=== PATIENT | male | born 1975 | race Caucasian/White ===

== ENCOUNTER 2020-08-15 06:01 | Day surgery (SDC) | payer OTHER ==
[2020-08-15] VITALS (19 sets, daily range): BP systolic 130–152; BP diastolic 62–95
[~2020-08-15] VITALS: Ht 165.1 cm; Wt 89.8 kg
[2020-08-15] MEDS ORDERED: TRAZ-187 PO (06:46)
[2020-08-15] MEDS ORDERED: NAPR-1192 PO (06:46)
[2020-08-15] MEDS ORDERED: CALC-190 PO (06:46)
[2020-08-15] MEDS ORDERED: LOSA25TA41 PO (06:46)
[2020-08-15] MEDS ORDERED: LACTATED RINGERS 1000ML 1,000 ML IV SCH (09:45)
[2020-08-15] MEDS: CEFAZOLIN SODIUM 1 GM VIAL IVP SCH ×2 (09:45→12:45)
[2020-08-15 10:01] LABS: BASOPHILS % (AUTO) 0.6 % (0.0-5.0); EOSINOPHILS % (AUTO) 2.5 % (0.0-8.0); HEMATOCRIT 45.6 % (42-54); LYMPHOCYTES % (AUTO) 29.7 % (21.0-51.0); MEAN CORPUSCULAR HEMOGLOBIN 32.3 pg (27.0-33.0); MEAN CORPUSCULAR HGB CONC 34.9 g/dL (32.0-36.0); MEAN CORPUSCULAR VOLUME 92.5 fL (79-99); MONOCYTES % (AUTO) 9.1 % (3.0-13.0); NEUTROPHILS % (AUTO) 57.8 % (40.0-77.0); PLATELET COUNT (AUTO) 304 K/uL (130-400); RED BLOOD CELL COUNT(AUTO) 4.93 MIL/uL (4.50-6.20); RED CELL DISTRIBUTION WIDTH 12.5 % (11.0-15.5); WHITE BLOOD COUNT (AUTO) 7.2 K/uL (4.8-10.8)
[2020-08-15 10:17] LABS: CREATININE 1.2 mg/dL (0.5-1.5); POTASSIUM 3.9 mmol/L (3.5-5.1)
[2020-08-15] MEDS ORDERED: SUCCINYLCHOLINE CHLORIDE 20 MG/ML 10 ML VIAL ONE (11:43)
[2020-08-15] MEDS ORDERED: LIDOCAINE PF 2% 5ML ABBOJECT ONE (11:43)
[2020-08-15] MEDS ORDERED: PROPOFOL 10 MG/ML 20ML VIAL IV ONE (11:44)
[2020-08-15] MEDS ORDERED: ONDANSETRON HCL 4 MG/2 ML VIAL ONE (11:44)
[2020-08-15] MEDS ORDERED: MIDAZOLAM HCL 1 MG/ML 2ML VIAL ONE (11:44)
[2020-08-15] MEDS ORDERED: FENTANYL CITRATE PF 50 MCG/1 ML 2ML VIAL ONE (11:46)
[2020-08-15] MEDS ORDERED: ROCURONIUM 10MG/1ML SYR 10 MG/ML ML ONE (11:46)
[2020-08-15] MEDS ORDERED: DEXAMETHASONE SOD PHOSPHATE 10MG/ML 1ML VIAL ONE (13:10)
[2020-08-15] MEDS ORDERED: GLYCOPYRROLATE 1 MG/5 ML SYRINGE ONE (13:40)
[2020-08-15] MEDS ORDERED: NEOSTIGMINE 5MG/5ML SYR IV ONE (13:40)
[2020-08-15] MEDS ORDERED: MEPERIDINE-PF 25 MG/ML SYG ONE ×3 (13:41→14:45)
== END 2020-08-15 15:55 | disposition home or self-care (01) ==
LOC: DAH 06:01
PROVIDERS: ATTEND Orthopaedic Surgery
DX: S86.812A Strain of other muscle(s) and tendon(s) at lower leg level, left leg, initial encounter (principal); F17.200 Nicotine dependence, unspecified, uncomplicated; I10 Essential (primary) hypertension; M25.462 Effusion, left knee; X58.XXXA Exposure to other specified factors, initial encounter; Y93.89 Activity, other specified; Y92.89 Other specified places as the place of occurrence of the external cause; Y99.8 Other external cause status
CPT/HCPCS: 27380; 36415; 64447; 76942; 80048; 85025; 87426; A4215; A4221; A4222; A4223; A4649; A4663; A5120; A6223; J0330; J0690; J1100; J2001; J2175 ×2; J2250; J2405; J2704; J2710; J3010; J3490; J7120; L1830